=== PATIENT | female | born 1995 | race African-American/Black ===

== ENCOUNTER 2017-10-10 23:04 | Emergency (ER) | payer SELFPAY ==
--- NOTE | 2017-10-10 23:15 | NUR ---
Patient left without being seen by ER physician.
== END 2017-10-10 23:16 | disposition left against medical advice (07) ==
LOC: ER 23:11
DX: Z53.21 Procedure and treatment not carried out due to patient leaving prior to being seen by health care provider (principal)

== ENCOUNTER 2018-01-01 13:53 | Emergency (ER) | payer BC ==
[~2018-01-01] VITALS: Ht 160 cm; Wt 56.7 kg
--- NOTE | 2018-01-01 15:01 | NUR ---
Dr best at the bedside for MSE.
[2018-01-01 15:04] LABS: *BILIRUBIN,URIN NEGATIVE (NEGATIVE); *BLOOD, URINE 2+ (NEGATIVE); *CLARITY,URINE SLIGHTLY CLOUDY (CLEAR); *COLOR,URINE YELLOW (YELLOW); *KETONES,URINE 1+ (NEGATIVE); *PROTEIN,URINE 1+ (NEGATIVE); *UROBILINOGEN,URINE 0.2 E.U./dl (NORMAL); LEUKOCYTE ESTERASE ,URINE 1+ (NEGATIVE); NITRITE, URINE NEGATIVE (NEGATIVE); UGLUCOSE NEGATIVE (NEGATIVE)
[2018-01-01] MEDS ORDERED: ONDANSETRON ODT 4 MG TAB.RAPDIS SL ONE (15:15)
[2018-01-01] MEDS ORDERED: KETOROLAC TROMETHAMINE 30 MG INJ IM ONE (15:15)
[2018-01-01] MEDS ORDERED: ONDANSETRON ODT 4 MG TAB.RAPDIS ONE (15:17)
[2018-01-01] MEDS ORDERED: KETOROLAC TROMETHAMINE 30 MG INJ ONE (15:17)
[2018-01-01 15:28] LABS: *URINE HCG, QUAL NEGATIVE (NEGATIVE); BACTERIA,URINE FEW /HPF (NONE SEEN); RBC,URINE 0-3 /HPF (0-3); SQUAMOUS EPITHELIAL CELL,UR FEW /HPF (NONE SEEN)
--- NOTE | 2018-01-01 15:49 | NUR ---
Female management and budget analyst accompanied female patient for (u/s tech).
--- NOTE | 2018-01-01 16:10 | NUR ---
Patient discharged to home in stable conditon. Written and verbal after care instructions given. Patient verbalizes understanding of instructions.
[2018-01-01 16:12] VITALS: BP 109/69
[2018-01-04 08:09] LABS: *GC NAA Negative (Negative)
[2018-01-04 09:08] LABS: *TRIC.VAG. NAA Negative (Negative)
== END 2018-01-01 16:30 | disposition home or self-care (01) ==
LOC: ER 13:53
DX: N83.209 Unspecified ovarian cyst, unspecified side (principal); N39.0 Urinary tract infection, site not specified
CPT/HCPCS: 84703; 87491; A4663; J1885; Q0162